=== PATIENT | male | born 1980 | race Caucasian/White ===

== ENCOUNTER → 2022-05-21 09:44 | Outpatient (BNVA) | payer OTHER, SELFPAY | PROVIDERS: PCP Nurse Practitioner Primary Care; Visit Provider Surgery | DX: K62.89 Other specified diseases of anus and rectum (principal) | CPT/HCPCS: 46600 ==

== ENCOUNTER 2022-07-04 09:11 | Day surgery (SDC) | payer OTHER, SELFPAY ==
[2022-06-30 11:23] VITALS: BMI 31.6
[2022-07-04] VITALS (7 sets, daily range): BP systolic 108–139; BP diastolic 51–97; PULSE 71–90; RESP 16–18; TEMP 36.1–36.6; O2SAT 95–99
--- NOTE | 2022-07-04 09:23 | P.CONAN_ITS ---
HPI - Anesthesia Eval Consult details Narrative: 42 yo male patient for EUA, Hemorrhoidectomy, possible sphincterotomy PMFSH Active Problems Active Problems: All Active Problems (Updated 05/21/22 @ 10:26 by Patrick March MD) Anal pain (Acute) Acid reflux (Acute) Hemorrhoids (Acute) Rectal bleeding (Acute) Past Medical History Medical History (Updated 05/21/22 @ 10:26 by Patrick March MD) Anal pain Family History Family history of problems with anesthesia: No Surgical History Surgical History History of elbow surgery History of hand surgery History of Problems with Anesthesia: No Social History Social History Household Members: Family Alcohol intake: current Alcohol intake frequency: holidays/special occasions only Patient Tobacco Use Status: Never used Tobacco Are you DNR?: No Advance Directives: No Advance Directives Information Provided: Yes Nutrition Risks: No Nutritional Risk Meds Allergies Allergy/AdvReac Type Severity Reaction Status Date / Time No Known Allergies Allergy Verified 07/04/22 09:47 Active Medications: Current Medications Cefotetan Disodium 2 gm/ (Sodium Chloride) 50 mls @ 100 mls/hr IV PREOP ONE Stop: 07/04/22 09:46 Lactated Ringer's (Lr) 1,000 mls @ 100 mls/hr IVCONT .[facility] Home Medications Medication Instructions Recorded Confirmed Last Taken Type omeprazole magnesium 20 mg 20 mg PO DAILY 04/22/22 05/21/22 Unknown History tablet,delayed release (Prilosec OTC) Exam Exam Date and Time: July 04, 2022922 Height,Weight and Vital Signs: Height 5 ft 11 in Weight 102.965 kg Vital Signs Temp Pulse Resp BP Pulse Ox O2 Del Method 07/04/22 09:56 97.9 F 74 18 130/78 96 Room Air Airway Mallampati Class: II TM Dist: >3cm Neck ROM: Full Loose/Missing/Broken Teeth: No (Patient denies) Heart: RRR Lungs: CTAB Assessment and Plan Assessment Anesthesia Assessment: Anesthesia Plan Discussed and Chart Reviewed Final Anesthetic Review Family History of Problems with Anesthesia: No History of Problems with Anesthesia: No NPO: Yes ASA Class: II Final Preanesthetic Review: No Changes in Pt Med Stat, Meds/Allgs Chart Reviewed, Consent Obtained/Reviewed and Anes Risks/Benef Reviewed Patient Risk: Low Procedure Risk: Low Assessment/Block/Sedation in SS: Assess/Block/Sedation-SS Anesthetic Plan Anesthetic Plan: GA Disposition: Standard PACU
--- NOTE | 2022-07-04 09:35 | MHC.SHP ---
Pre-Procedural Eval Section A Date of Service: 07/04/22 Section B Chief Complaint: Other specified diseases of anus and rectum, known Details of Present Illness: has had anal pain x 8 months, known hemorrhoids Relevant Social History: None Present Medications: see Short Stay Collaborative assessment Medical History: Significant History (reflux disease) Allergies: Allergies Allergy/AdvReac Type Severity Reaction Status Date / Time No Known Allergies Allergy Verified 04/22/22 14:43 Review of Systems Sugical H&P ROS: Negative: Constitution, Cardiovascular, Respiratory, Neurological, Psychiatric, Hem-Onc, Allergic/Immunologic, Gastrointestinal, Genitourinary, Musculoskeletal, Integumentary, Endocrine and Eyes/Ears/Nose/Throat Exam Surgical H&P Exam: Normal: HEENT, Normal: Heart, Normal: Lungs, Normal: Extremities, Normal: Abdomen, Normal: Skin and Normal: Neurological Exam Comment: has mixed hemorrhoids, hypertonic sphincter Plan Diagnosis/Plan: Unchanged I have reviewed the history and physical and performed a pertinent physical examination on my patient. No changes have occurred unless specified.
[2022-07-04] MEDS: Lactated Ringers 1,000 ML 100 ML IVCONT (09:42)
--- NOTE | 2022-07-04 10:29 | W.PM.OPN ---
Operative Note Operative Note Date of Service: 07/04/22 Narrative: Prep diagnosis: Anal pain Postop diagnosis: Anal pain, with external hemorrhoids and anal fissure Procedure: Exam under anesthesia, left lateral internal sphincterotomy, hemorrhoidectomy x1 Surgeon: Patrick March MD The patient is a 42-year-old male was had anal pain for several months described as sharp, like a knife cutting his anus. He had hypertonic sphincter in the office on exam and he also had hemorrhoids. I therefore recommended him to proceed with exam under anesthesia, hemorrhoidectomy and likely sphincterotomy. He understood the technique of the procedure. He was aware of the risks, benefits, and alternatives He was brought the operating room. He was placed in prone cheryle-knife position under general anesthesia via endotracheal tube. The buttocks were retracted with wide tape laterally. The perianal area was prepped and draped in the usual sterile fashion. A surgical time-out was done. The patient received Cefotan 2 g IV preoperatively Retraction the buttocks revealed a fissure in the distal anoderm. He also had some external hemorrhoids left more than the right. I inserted abuse Dawn retractor. I examined the anal canal circumferentially. There were no other lesions sec for the external hemorrhoids. In view of the presence of anal fissure, I proceeded to do a left lateral internal sphincterotomy. I palpated for the intersphincteric groove. I made a short incision overlying this on the skin. I did blunt dissection using the mass that isolate the internal sphincter and this was positioned in between the intersphincteric plane. I divided the fibers of the internal sphincter down to the level of the dentate line using cautery. I closed the incision with a running chromic 3-0 stitch. I then proceeded to do hemorrhoidectomy on the hemorrhoidal column on the left. This was an external hemorrhoid. I retracted this hemorrhoidal column with a Aggarwal grasper. I made an incision around this hemorrhoidal column elliptically using blade 15. I excised this hemorrhoidal column above the plane of sphincters using Metzenbaum scissors. I closed the incision with a running chromic 3-0 stitch Additional hemostatic sutures were placed . Once hemostasis was ensured, I infiltrated the perianal area with Marcaine 0.5% for postop analgesia. The procedure was then completed. The patient tolerated procedure well. There were no complication noted. Initial and final counts and sponges instruments were correct. Estimated blood loss about 20 cc The patient was extubated without difficulty and transferred to the recovery room with stable vital signs.
[2022-07-04] MEDS: oxyCODONE HCl Immed Release 5 MG TABLET PO (10:59)
[2022-07-04] MEDS: Acetaminophen 325 MG TABLET 975 MG PO (11:04)
== END 2022-07-04 11:53 | disposition home or self-care (01) ==
PROVIDERS: PCP Nurse Practitioner Primary Care; Visit Provider Surgery
PROC: (CPT 46080; principal; 2022-07-04 10:30)
DX: K60.2 Anal fissure, unspecified (principal); K64.4 Residual hemorrhoidal skin tags; Z79.899 Other long term (current) drug therapy; Z98.890 Other specified postprocedural states
CPT/HCPCS: 46080; 88304; J1100; J1885; J2250; J2405; J2795; J3010

== ENCOUNTER 2022-08-26 10:55 | Day surgery (SDC) | payer OTHER, SELFPAY ==
[2022-08-20 15:26] VITALS: BMI 32.5
--- NOTE | 2022-08-25 13:22 | HO.ANESPROP2 ---
Documented by User: Sophy Card NP 08/25/22 13:22 HPI - Anesthesia Eval Consult details Narrative: 42yo M for Upper Endoscopy and Colonoscopy [facility] Active Problems Active Problems: All Active Problems (Updated 08/20/22 @ 15:25 by Shaina Coyle RN) Rectal bleeding (Acute) Hemorrhoids (Acute) Acid reflux (Acute) Anal pain (Acute) Past Medical History Medical History Anal pain GERD (gastroesophageal reflux disease) Family History Family history of problems with anesthesia: No Surgical History Surgical History History of elbow surgery History of hand surgery History of rectal sphincterotomy (~07/04/22) History of Problems with Anesthesia: No Social History Social History Household Members: Family Alcohol intake: current Alcohol intake frequency: holidays/special occasions only Patient Tobacco Use Status: Never used Tobacco Are you DNR?: No Advance Directives: No Advance Directives Information Provided: Yes Nutrition Risks: No Nutritional Risk Meds Allergies Allergy/AdvReac Type Severity Reaction Status Date / Time No Known Allergies Allergy Verified 08/26/22 11:20 Home Medications Medication Instructions Recorded Confirmed Last Taken Type omeprazole magnesium 20 mg 20 mg PO DAILY 04/22/22 08/20/22 08/26/22 History tablet,delayed release (Prilosec OTC) Exam Exam Date and Time: August 25, 2022 1322 Height,Weight and Vital Signs: Height 5 ft 11 in Weight 105.687 kg Assessment and Plan Assessment Anesthesia Assessment: Chart Reviewed Final Anesthetic Review Family History of Problems with Anesthesia: No History of Problems with Anesthesia: No Documented by User: Zane Renteria MD 08/26/22 11:26 [facility] Past Medical History Medical History Anal pain GERD (gastroesophageal reflux disease) Surgical History Surgical History History of elbow surgery History of hand surgery History of rectal sphincterotomy (~07/04/22) Social History Social History Household Members: Family Alcohol intake: current Alcohol intake frequency: holidays/special occasions only Patient Tobacco Use Status: Never used Tobacco Are you DNR?: No Advance Directives: No Advance Directives Information Provided: Yes Nutrition Risks: No Nutritional Risk Meds Allergies Allergy/AdvReac Type Severity Reaction Status Date / Time No Known Allergies Allergy Verified 08/26/22 11:20 Home Medications Medication Instructions Recorded Confirmed Last Taken Type omeprazole magnesium 20 mg 20 mg PO DAILY 04/22/22 08/20/22 08/26/22 History tablet,delayed release (Prilosec OTC) Exam Airway Mallampati Class: II TM Dist: >3cm Neck ROM: Full Assessment and Plan Assessment Anesthesia Assessment: Anesthesia Plan Discussed Final Anesthetic Review NPO: Yes ASA Class: II Final Preanesthetic Review: No Changes in Pt Med Stat, Meds/Allgs Chart Reviewed, Consent Obtained/Reviewed and Anes Risks/Benef Reviewed Patient Risk: Low Procedure Risk: Low Anesthetic Plan Anesthetic Plan: MAC: Disposition: Standard PACU
[2022-08-26] MEDS: Lactated Ringers 1,000 ML 100 ML IVCONT (11:09)
--- NOTE | 2022-08-26 11:09 | P.HPSUR_ITS ---
Pre-Procedural Eval Section A Date of Service: 08/26/22 Section B Chief Complaint: hemorrhoids,reflux Relevant Family History (Specify if Yes): No Relevant Social History: None Present Medications: see Short Stay Collaborative assessment Medical History: Significant History (Anal pain GERD (gastroesophageal reflux disease)) History of Previous Operations: Relevant previous surgery/procedure and date(s) (History of elbow surgery History of hand surgery History of rectal sphincterotomy (~07/04/22)) Allergies: Allergies Allergy/AdvReac Type Severity Reaction Status Date / Time No Known Allergies Allergy Verified 07/16/22 08:47 Review of Systems Sugical H&P ROS: Negative: Constitution, Cardiovascular, Respiratory, Neurological, Psychiatric, Hem-Onc, Allergic/Immunologic, Gastrointestinal, Genitourinary, Musculoskeletal, Integumentary, Endocrine and Ey es/Ears/Nose/Throat Exam Surgical H&P Exam: Normal: HEENT, Normal: Heart, Normal: Lungs, Normal: Extremities, Normal: Abdomen, Normal: Skin and Normal: Neurological Plan Diagnosis/Plan: Unchanged I have reviewed the history and physical and performed a pertinent physical examination on my patient. No changes have occurred unless specified.
[2022-08-26 11:17] VITALS: BP 142/82; PULSE 81; RESP 18; TEMP 36.6; O2SAT 96
--- NOTE | 2022-08-26 11:51 | W.PM.OPN ---
Operative Note Operative Note Date of Service: 08/26/22 Narrative: Operative Information Procedure Description: EGD, Colonoscopy Indication: gerd, rectal bleeding Anesthesia: MAC FLEXIBLE TRANSORAL UPPER GASTROINTESTINAL ENDOSCOPY AND COLONOSCOPY PROCEDURE NOTE UPPER ENDOSCOPY Consent: Indications for the procedure and potential complications of bleeding, perforation, reaction to medications and missed diagnosis were discussed with the patient and informed consent was obtained. Instrument: Olympus GIF H 190 J mid size upper endoscope Monitoring: Vital signs and clinical assessment, continuous EKG monitoring, Pulse oximetry, Carbon Dioxide monitoring and blood pressure monitoring were done throughout the procedure. Procedure: The patient was placed in the left lateral decubitis position and pre-procedure medications were administered and a bite block was placed. The endoscope was inserted into the mouth and advanced under direct vision to the third part of duodenum. A careful inspection was made as the upper endoscope was withdrawn including a retroflexed examination of the proximal stomach; Findings and interventions are described below. Findings: Larynx:normal Esophagus: GE junction at 42 cm, diaphragm hiatus at 42 cm, possible short segment barretts with islands of salmon pink tissue and few tongues of tissue, bx taken Stomach: Mild streaky erythematous mucosa. Biopsies were obtained. Grade 2 flap valve on retroflexed examination of the cardia. Duodenum: Normal bulb and descending duodenum, Intervention: Biopsies as noted above COLONOSCOPY Instrument: Olympus variable stiffness pediatric scope 190L Colonoscopy Monitoring: Vital signs and clinical assessment, continuous EKG monitoring, Pulse oximetry, Carbon Dioxide monitoring and blood pressure monitoring were done throughout the procedure. Colon withdrawal time was 7 minutes. Procedure: The patient was placed in the left lateral decubitis position and pre-procedure medications were administered. After a digital rectal examination of the ano-rectum, the video colonoscope was inserted into the rectum and advanced through the colon to the cecum/TI. The colonoscope was slowly withdrawn in a retrograde panoramic fashion and the colon mucosa was carefully examined including a retroflexed view of the rectum. Findings and interventions are described below. Procedure Difficulty:easy Findings: Terminal Ileum-normal Cecum:normal Ascending Colon: normal Transverse Colon -normal Descending Colon:normal Sigmoid Colon: normal Rectum: Retroflexion with small internal hemorrhoids, grade I Anorectum - normal Colon preparation: Henderson Bowel Preparation Scale Right colon; 2 Transverse colon: 2 Left colon; 2 (0 = Unprepared colon segment with mucosa not seen due to solid stool that cannot be cleared. 1 = Portion of mucosa of the colon segment seen, but other areas of the colon segment not well seen due to staining, residual stool and/or opaque liquid. 2 = Minor amount of residual staining, small fragments of stool and/or opaque liquid, but mucosa of colon segment seen well. 3 = Entire mucosa of colon segment seen well with no residual staining, small fragments of stool or opaque liquid) Impression and Post Procedure Diagnosis: Endoscopy Findings: suspected barretts esophagus gastritis Colonoscopy Findings: internal hemorrhoids Plan: Await Pathology results Repeat Colonoscopy in 10 years or earlier if clinically indicated High fiber diet leaflet avoid straining at stool, epsom salts and sitz bath, anusol supps or cream reflux precautions, consider repeat EGD in 3-5 years Above findings were reviewed with the patient and relevant handouts were provided if indicated.
[2022-08-26 12:39] VITALS: BP 132/70; PULSE 90; RESP 16; TEMP 36.2; O2SAT 100
[2022-08-26 12:54] VITALS: BP 112/72; PULSE 82; RESP 16; TEMP 36.2; O2SAT 96
== END 2022-08-26 13:25 | disposition home or self-care (01) ==
PROVIDERS: PCP Nurse Practitioner Primary Care; Visit Provider Internal Medicine Gastroenterology
PROC: (CPT 45378; principal; 2022-08-26 12:10)
DX: K62.5 Hemorrhage of anus and rectum (principal); K63.5 Polyp of colon; K64.0 First degree hemorrhoids; K21.9 Gastro-esophageal reflux disease without esophagitis; K29.50 Unspecified chronic gastritis without bleeding; K22.70 Barrett's esophagus without dysplasia; K44.9 Diaphragmatic hernia without obstruction or gangrene; Z79.899 Other long term (current) drug therapy
CPT/HCPCS: 45378; 43239; 88305; 88342; J2250